=== PATIENT | male | born 1975 | race Caucasian/White ===

== ENCOUNTER 2017-11-20 00:52 | Emergency (ER) | END 2017-11-20 05:25 | disposition home or self-care (01) ==

== ENCOUNTER 2018-04-21 07:07 | Emergency (ER) | END 2018-04-21 09:33 | disposition home or self-care (01) ==

== ENCOUNTER 2018-10-22 08:57 | Emergency (ER) | payer OTHER ==
[~2018-10-22] VITALS: Ht 180.3 cm; Wt 85.0 kg
[2018-10-22 09:01] VITALS: BP 149/99; PULSE 101; RESP 18; Ht 180.3 cm; Wt 85.0 kg
[2018-10-22] MEDS ORDERED: KETOROLAC 30 MG INJ IM STA (10:00)
[2018-10-22] MEDS ORDERED: LIDOCAINE 1% (MPF) 5 ML VIAL INJ ONE (10:00)
--- NOTE | 2018-10-22 10:00 | ERD ---
ER Documentation Chief Complaint Chief Complaint pt is bib RA [id number] with right thumb lac on can since 4 am HPI Is a 43-year-old male who presents with complaint of laceration to right thumb t hat he states occurred this morning while opening a bottle of coconut juice, patient cannot say whether or not it was metal or glass he is not really sure how it happened. States pain is 10 out of 10 at this time. Patient with agitation and strong odor of EtOH. Patient admits to drinking alcohol [employer], alcoholism, depression, anxiety. Motor and sensation of thumb intact. Pt reluc tant to wait for treatment, pt had to be brought in to exam room several times for assessment. ROS All systems reviewed and are negative except as per history of present illness. Medications Home Meds Active Scripts Ibuprofen* (Motrin*) 600 Mg Tab, 600 MG PO Q6 for pain, #30 TAB Prov:PAMELA GRIMM [employer] 10/22/18 Allergies Allergies: Coded Allergies: No Known Allergy (Unverified , 04/21/18) PMhx/Soc History of Surgery: Yes Hx Neurological Disorder: No Hx Cardiac Disorders: Yes (HTN ) Hx Psychiatric Problems: Yes (SCHIZOPHRENIA ) Hx Miscellaneous Medical Probl: Yes (HYPERLIPIDEMIA) Hx Alcohol Use: Yes (daily ) Hx Substance Use: No Hx Tobacco Use: No FmHx Family History: No diabetes, No coronary disease, No other Physical Exam Vitals Vital Signs Date Temp Pulse Resp B/P (MAP) Pulse Ox O2 O2 Flow FiO2 Time Delivery Rate 10/22/18 97.7 101 18 149/99 99 09:01 (116) Physical Exam Const: No acute distress Head: Atraumatic Eyes: Normal Conjunctiva ENT: Normal External Ears, Nose and Mouth. Neck: Full range of motion. No meningismus. Resp: Clear to auscultation bilaterally Cardio: Regular rate and rhythm, no murmurs Abd: Soft, non tender, non distended. Normal bowel sounds Skin: No petechiae or rashes. Superficial laceration to pad of right thumb, bleeding controlled, +csm Back: No midline or flank tenderness Ext: No cyanosis, or edema. Abrasion to right thumb approx 0.5 cm, naik perficial, bleeding controlled. Neur: Awake and alert Psych: Agitated Mood and Affect Results 24 hrs Current Medications Medications Dose Sig/Drew Start Time Status Last (Trade) Ordered Route PRN Stop Time Admin Dose Reason Admin Lidocaine 5 ml ONCE ONCE 10/22/18 DC (Xylocaine INJ 10:00 1% (Mpf)) 10/22/18 10:06 Ketorolac 30 mg ONCE STAT 10/22/18 DC 10/22/18 Tromethamine IM 10:00 10:11 (Toradol) 10/22/18 10:06 Procedures/MDM This is a 43-year-old male patient who presents to the emergency room with abrasion to right thumb. Patient did not appear to have fracture, ligament or nerve injury, no redness, swelling, or discharg to indicate infection. Wound adequately cleansed with saline and iodine soak. Abrasion very superficial 0.5 cm in length, does not require suturing. Refusing Dermabond, Steri-Strips, or bandage. Patient ambulating out of the ER leaving without discharge instructions. Effort made to keep patient in ER to complete care, patient refusing/declining. Departure Diagnosis: Primary Impression: Laceration Condition: Stable Patient Instructions: Laceration, Hand Referrals: [facility] Additional Instructions: Thank you very much for allowing us to participate in your care. Your health and safety is our top priority at [facility]. Call your primary care doctor TOMORROW for an appointment during the next 2-4 days and bring all the information and medications prescribed. Have prescriptions filled and follow precisely the directions on the label. If the symptoms get worse and your provider is unavailable, return to the Emergency Department immediately. PAMELA GRIMM NP Oct 22, 2018 10:00
[2018-10-22] MEDS ORDERED: IBUP-1542 PO (10:03)
== END 2018-10-22 11:25 | disposition left against medical advice (07) ==
LOC: FTE 08:57
DX: S61.011A Laceration without foreign body of right thumb without damage to nail, initial encounter (principal); I10 Essential (primary) hypertension; W26.8XXA Contact with other sharp object(s), not elsewhere classified, initial encounter; Y92.9 Unspecified place or not applicable
CPT/HCPCS: 96372; J1885; Z7502; Z7610